=== PATIENT | male | born 1975 | race Caucasian/White ===

== ENCOUNTER 2024-02-09 07:44 | Emergency (ER) | payer BC ==
[2024-02-09] MEDS: Ondansetron 4 MG/2 ML SDV IVPUSH ONE ×2 (08:47→09:30)
[2024-02-09] MEDS: Famotidine 20 MG/2 ML SDV IVPUSH ONE (08:47)
[2024-02-09] MEDS: Sodium Chloride 0.9% 1,000 ML IV ONE (08:47)
[2024-02-09] MEDS: Sodium Chloride 0.9% 10 ML Syringe FLUSH PRN (08:48)
[2024-02-09] MEDS: Sodium Chloride 0.9% 2.5 ML Syringe FLUSH PRN (08:48)
[2024-02-09 08:50] LABS: BASOPHILS ABSOLUTE AUTO 0.05 K/uL (0.00-0.20); BASOPHILS PERCENT AUTO 0.3 % (0.0-1.0); EOSINOPHILS PERCENT AUTO 1.3 % (0.0-6.0); HEMATOCRIT 45.5 % (42.0-52.0); HEMOGLOBIN 16.6 g/dL (14.0-18.0); IMMATURE GRAN ABSOLUTE AUTO 0.05 K/uL (0.00-0.05); IMMATURE GRAN PERCENT AUTO 0.3 % (0.0-0.4); LYMPHOCYTES ABSOLUTE AUTO 0.87 K/uL (1.00-4.80); LYMPHOCYTES PERCENT AUTO 5.8 % (24.0-44.0); MEAN CORPUSCULAR HEMOGLOBIN 32.4 pg (28.0-32.0); MEAN CORPUSCULAR HGB CONC 36.5 g/dL (32.0-36.0); MEAN CORPUSCULAR VOLUME 88.7 fL (83.0-99.0); MEAN PLATELET VOLUME 9.3 fL (9.4-12.4); MONOCYTES ABSOLUTE AUTO 0.82 K/uL (0.00-0.80); MONOCYTES PERCENT AUTO 5.4 % (0.0-8.0); NEUTROPHILS PERCENT AUTO 86.9 % (41.0-71.0); PLATELET COUNT,PLT 234 K/uL (150-400); RED BLOOD CELL COUNT 5.13 M/uL (4.52-5.90); WHITE BLOOD CELL COUNT,WBC 15.09 K/uL (3.9-11.3)
[2024-02-09] MEDS ORDERED: Naloxone 0.4 MG/ML SDV IVPUSH PRN (09:23)
[2024-02-09 09:25] LABS: A/G RATIO 1.1 (0.9-1.6); ALBUMIN 4.1 g/dL (3.4-5.0); BILIRUBIN TOTAL 0.9 mg/dL (0.2-1.0); CALCIUM 9.1 mg/dL (8.5-10.1); CARBON DIOXIDE,CO2 26.8 mmol/L (21.0-32.0); EST CRCL DRUG DOSING (CG) 91.25 mL/min; PROTEIN TOTAL,TP 7.7 g/dL (6.4-8.2)
[2024-02-09] MEDS: Morphine 4 MG/ML Syringe IVPUSH ONE (09:30)
[2024-02-09 09:31] LABS: AMPHETAMINES SCREEN, URINE NEGATIVE (CUTOFF=500); BARBITURATE SCREEN,URINE NEGATIVE (CUTOFF=200); BENZODIAZEPINES SCREEN,URINE NEGATIVE (CUTOFF=150); BUPRENORPHINE SCREEN,URINE NEGATIVE (CUTOFF=10); METHADONE SCREEN, URINE NEGATIVE (CUTOFF=200); METHAMPHETAMINES SCREEN, URINE NEGATIVE (CUTOFF=500); OXYCODONE SCREEN,URINE NEGATIVE (CUT0FF=100); PCP SCREEN,URINE NEGATIVE (CUTOFF=25); THC SCREEN,URINE 20 NG/ML NEGATIVE (CUTOFF=50)
[2024-02-09] MEDS: Sucralfate Suspension 1 GM/10 ML Cup PO ONE (10:58)
[2024-02-09] MEDS: Alum Hydro/Mag Hydro/Simeth XS 15 ML, Lidocaine 2% 5 ML PO ONE (10:58)
== END 2024-02-09 12:15 | disposition home or self-care (01) ==
LOC: MW.ED 07:44
DX: R10.13 Epigastric pain (principal); R11.0 Nausea; I10 Essential (primary) hypertension; Z75.8 Other problems related to medical facilities and other health care; Z91.040 Latex allergy status; Z79.899 Other long term (current) drug therapy
CPT/HCPCS: 36415; 80053; 80305; 83690; 85025; 96361; 96374; 96375; 96376; 99284; A9270; J2270; J2405; J3490; J7030